=== PATIENT | female | born 1945 | race African-American/Black ===

== ENCOUNTER 2018-12-08 13:34 | Inpatient (IN) | payer MEDICARE, MEDICAID ==
[~2018-12-08] VITALS: Ht 167.6 cm; Wt 73.8 kg
[~2018-12-08 13:34] MED LIST: ASPI-231 PO; CLON0.2D3 TD; CLOP75TA28 PO; GLY5T PO; Gabapentin PO; HYD25T PO; ISOS60TA PO; LABE100T4 PO; LEVE500T22 PO; LOSA-49 PO; LUBI24CA6 PO; MIN25T PO; NIFE60TA53 PO; SIMV-8 PO
[2018-12-08 15:52] LABS: Basophils # (auto) 0 uL; Eosinophils # (auto) 0.2 uL
[2018-12-08 15:54] LABS: Basophils % (auto) 0.4 % (0.0-2.0); Eosinophils % (auto) 1.5 % (0.0-7.0); Hematocrit 35.4 % (36.0-46.0); Hemoglobin 11.5 g/dL (12.2-16.2); Lymphocytes # (auto) 0.6 uL; Lymphocytes % (auto) 5.3 % (10.0-50.0); Mean Corpuscular Hemoglobin 33.1 pg (28.0-32.0); Mean Corpuscular Hgb Conc. 32.5 g/dL (32.0-36.0); Monocytes # (auto) 0.9 uL; Monocytes % (auto) 7.9 % (0.0-12.0); Neutrophils # (auto) 10.1 uL; Neutrophils % (auto) 84.9 % (37.0-80.0); Platelet Count (auto) 211 10^3/uL (140-450); Red Blood Cells 3.47 10^6/uL (4.0-5.20); Red Cell Distribution Width 14.6 % (11.8-14.3); White Blood Cell 11.9 10^3/uL (4.4-10.8)
[2018-12-08 16:03] LABS: INR 1.13 (0.9-1.15); Partial Thromboplastin Time 28.5 sec (23.78-33.04)
[2018-12-08 16:10] LABS: Alanine Aminotransferase 16 U/L (13-56); Albumin 3.2 g/dL (3.4-5.0); Anion Gap 14 (5-15); Aspartate Aminotransferase 25 U/L (15-37); BUN/Creatinine Ratio 6.6; Blood Urea Nitrogen 49 mg/dL (7-18); Calcium 9.4 mg/dL (8.5-10.1); Carbon Dioxide 28 mmol/L (21-32); Chloride 97 mmol/L (98-107); GFR African American 7 mL/min; GFR Non-African American 6 mL/min; Glucose 69 mg/dL (74-106); Potassium 3.8 mmol/L (3.5-5.1); Sodium 139 mmol/L (136-145)
[2018-12-08 16:17] LABS: Alkaline Phosphatase 106 U/L (45-117); Bilirubin, Total 0.3 mg/dL (0.2-1.0); Total Protein 8.4 g/dL (6.4-8.2)
[2018-12-08 16:34] LABS: Urine Bacteria MOD /hpf (None Seen); Urine Blood Negative /uL (Negative); Urine Specific Gravity 1.011 (1.001-1.035); Urine WBC 5 /hpf (0 - 5)
[2018-12-08] MEDS ORDERED: DEXTROSE (50%) 50ML SYRG IV ONE (17:15)
--- NOTE | 2018-12-08 17:59 | NUR ---
Midline Placement: Patient educated on need for midline placement. All risks and benefits explained and all questions and concerns addresses prior to procedure. 18g/10cm midline inserted via RIGHT BASILIC vein using Ultrasound. Sterile technique utilized. Blood return obtained from SINGLE lumen and flushed easily with NS using proper technique. Midline secured with saline lock; biodisc and occlusive dressing applied. Primary RN notified. Midline lot # [id number].
[2018-12-08] MEDS ORDERED: HYDROcodone-ACET 5/325MG TAB PO PRN (20:00)
[2018-12-08] MEDS ORDERED: cloNIDine 0.2 mg/24hr 7DAY PATCH TD SCH (20:00)
[2018-12-08] MEDS ORDERED: MORPHINE SULF INJ 2 MG/ML SYRINGE 1ML IV PRN ×2 (20:00)
[2018-12-08] MEDS ORDERED: ONDANSETRON HCL 4 MG/2 ML VIAL IV PRN (20:00)
[2018-12-08] MEDS ORDERED: ACETAMINOPHEN 500 MG TAB PO PRN (20:00)
[2018-12-08] MEDS ORDERED: NITROGLYCERIN 0.4 MG SL TAB SL PRN (20:00)
[2018-12-08] MEDS ORDERED: DEXTROSE (50%) 50ML SYRG IV PRN (20:00)
[2018-12-08] MEDS ORDERED: cefTRIAXone 1GM/50ML D5W 50 ML IV ONE ×2 (20:20→21:00)
[2018-12-08] MEDS ORDERED: InsuLIN REG 1unit/0.01ml Soln (100units/ml) SC SCH (22:00)
[2018-12-08] MEDS ORDERED: PATIENTS OWN MEDICATION (Simvastatin 20 MG) PO SCH (22:00)
[2018-12-08] MEDS ORDERED: ACCU-CHEK COMFORT CURVE STRIP VI SCH (22:00)
[2018-12-08] MEDS ORDERED: GABAPENTIN 200 MG PO SCH (22:00)
--- NOTE | 2018-12-08 22:10 | NUR ---
Telemetry admit from [facility] admitted to Telemetry unit. Patient oriented to [facility] LUNA OCA, primary RN, unit, room, bed, and unit policies regarding patient care and visiting hours. Patient now on continuous telemetry monitoring, tele box #23 and telemetry reading on arrival to unit is sinus rhythm 72. Patient weighed by bedscale. Note: Upon first assessment, patient AOX0, patient not answering questions nor following commands. Pt does follow with eyes when you walk across the room. Will check blood sugar.
[2018-12-08 22:25] VITALS: BP 113/68
--- NOTE | 2018-12-08 22:25 | NUR ---
Blood sugar Low at 16 and recheck was 23, Dextrose given, see eMAR. Patient is now talking and AOx2. Patient is now following commands. Will page hospitalist once blood sugar recheck is done again. Addendum: 12/09/18 at 0154 by [facility] LUNA OCA, RN 0: Blood sugar recheck was 144.
--- NOTE | 2018-12-08 22:45 | NUR ---
Hospitalist paged Regarding Low blood sugar, awaiting call back. Continue care.
--- NOTE | 2018-12-08 22:55 | NUR ---
Hospitalist returned call Dr. Asif returned call, updated on patient status and reason for call, new orders received and read back for verification. Continue care.
--- NOTE | 2018-12-09 | NUR ---
Stool sample sent.
[2018-12-09] MEDS: hydrALAZINE HCL 25 MG TAB PO SCH ×3 (00:06→22:00)
[2018-12-09] MEDS: LEVETIRACETAM 500 MG TAB PO SCH ×3 (00:06→22:05)
[2018-12-09] MEDS: DEXTROSE 10% 1,000 ML IV SCH ×2 (00:07→20:00)
--- NOTE | 2018-12-09 00:13 | NUR ---
Blood sugar was 68, gave patient orange juice and francie crackers, continue care.
[2018-12-09] MEDS: ACCU-CHEK COMFORT CURVE STRIP VI SCH ×7 (00:25→23:39)
--- NOTE | 2018-12-09 02:05 | NUR ---
MRSA screen sent
--- NOTE | 2018-12-09 03:53 | NUR ---
Blood sugar 130, continue care.
[2018-12-09 04:31] VITALS: BP 121/58
[2018-12-09 05:47] LABS: Basophils # (auto) 0 uL; Basophils % (auto) 0.4 % (0.0-2.0); Eosinophils # (auto) 0.2 uL; Eosinophils % (auto) 3.2 % (0.0-7.0); Hematocrit 34.5 % (36.0-46.0); Hemoglobin 11.5 g/dL (12.2-16.2); Lymphocytes # (auto) 0.8 uL; Lymphocytes % (auto) 14.3 % (10.0-50.0); Mean Corpuscular Hemoglobin 33.6 pg (28.0-32.0); Mean Corpuscular Hgb Conc. 33.3 g/dL (32.0-36.0); Mean Corpuscular Volume 100.9 fL (80.0-100.0); Monocytes # (auto) 0.8 uL; Monocytes % (auto) 14.4 % (0.0-12.0); Neutrophils # (auto) 3.6 uL; Neutrophils % (auto) 67.7 % (37.0-80.0); Platelet Count (auto) 195 10^3/uL (140-450); Red Blood Cells 3.42 10^6/uL (4.0-5.20); Red Cell Distribution Width 14.9 % (11.8-14.3); White Blood Cell 5.4 10^3/uL (4.4-10.8)
[2018-12-09 06:08] LABS: Potassium 3.7 mmol/L (3.5-5.1)
[2018-12-09 06:17] LABS: BUN/Creatinine Ratio 7.7; Calcium 9.5 mg/dL (8.5-10.1)
--- NOTE | 2018-12-09 07:00 | NUR ---
Stool sample sent to lab 2nd stool sample sent to lab with copy of cdiff paper.
--- NOTE | 2018-12-09 07:54 | NUR ---
RECEIVED REPORT AND ASSUME CARE OF PT. PT RESTING IN BED. NO S/S ACUTE DISTRESS NOTED. BED AT LOWEST POSITION. CALL LIGHT AND BELONGINGS WITHIN REACH. WILL CONT TO MONITOR
[2018-12-09 09:54] VITALS: BP 125/57
[2018-12-09] MEDS: DOCUSATE SOD 100 MG CAP PO SCH (10:00)
[2018-12-09] MEDS: GABAPENTIN 100 MG CAP PO SCH ×2 (10:21→22:05)
[2018-12-09] MEDS: CLOPIDOGREL BISULFATE 75 MG TAB PO SCH (10:21)
[2018-12-09] MEDS: ASPirin-EC 81 mg tab PO SCH (10:21)
[2018-12-09 13:00] VITALS: BP 130/52
--- NOTE | 2018-12-09 16:16 | NUR ---
PT DECLINED P.T. TODAY BECAUSE OF DIARRHEA.
[2018-12-09 17:30] VITALS: BP 125/69
--- NOTE | 2018-12-09 19:12 | NUR ---
PT RESTING IN BED. NO S/S ACUTE DISTRESS NOTED. ENDORSED CARE TO NIGHT NURSE.
--- NOTE | 2018-12-09 19:20 | NUR ---
Opening Shift Note Assumed care of patient, awake and alert x2. No S/S of distress/SOB or pain. Instructed on POC and to call for assist PRN. Bed in lowest locked position, call light within reach, side rails up x2, fall precautions in place. Will continue to monitor for changes Q1hr and PRN.
--- NOTE | 2018-12-09 20:30 | NUR ---
Stool sample 3rd cdiff sample sent to lab with copy of cdiff paper. Continue care.
[2018-12-09] MEDS ORDERED: cefTRIAXone 1GM/50ML D5W 50 ML IV SCH (22:00)
[2018-12-09] MEDS ORDERED: PRAVASTATIN SODIUM 20 MG TAB PO SCH (22:00)
[2018-12-09 22:08] VITALS: BP 100/54
[2018-12-10] MEDS: ACCU-CHEK COMFORT CURVE STRIP VI SCH ×4 (03:46→16:35)
[2018-12-10 05:38] VITALS: BP 119/58
[2018-12-10 05:46] LABS: Hematocrit 34.2 % (36.0-46.0); Hemoglobin 11.2 g/dL (12.2-16.2); Red Blood Cells 3.37 10^6/uL (4.0-5.20); White Blood Cell 4.7 10^3/uL (4.4-10.8)
[2018-12-10 05:49] LABS: Mean Corpuscular Hemoglobin 33.1 pg (28.0-32.0); Mean Corpuscular Hgb Conc. 32.7 g/dL (32.0-36.0); Mean Corpuscular Volume 101.3 fL (80.0-100.0); Platelet Count (auto) 190 10^3/uL (140-450)
[2018-12-10 05:52] LABS: Band Neutrophils % (manual) 0; Basophils % (manual) 0 (0.0-2.0); Blast Cells 0; Metamyelocytes % 0; Myelocytes % 0; Promyelocytes % 0; Reactive Lymphocytes 0
[2018-12-10 06:13] LABS: Calcium 9.7 mg/dL (8.5-10.1); Potassium 3.6 mmol/L (3.5-5.1)
[2018-12-10 06:15] LABS: BUN/Creatinine Ratio 8.4
--- NOTE | 2018-12-10 07:50 | NUR ---
Opening Shift Note Assumed care of patient, awake. No S/S of distress/SOB or pain. Instructed on POC and to call for assist PRN, will continue to monitor for changes Q1hr and PRN.
[2018-12-10 08:00] VITALS: BP 101/39
[2018-12-10 08:03] LABS: Eosinophils % (manual) 2 (0-7); Lymphocytes % (manual) 12 (10.0-50.0); Monocytes % (manual) 21 (0-12)
[2018-12-10 09:40] VITALS: BP 101/39
[2018-12-10] MEDS ORDERED: GABAPENTIN 100 MG CAP PO SCH (10:00)
[2018-12-10] MEDS: hydrALAZINE HCL 25 MG TAB PO SCH (10:00)
[2018-12-10] MEDS: DOCUSATE SOD 100 MG CAP PO SCH (10:24)
[2018-12-10] MEDS: CLOPIDOGREL BISULFATE 75 MG TAB PO SCH (10:25)
[2018-12-10] MEDS: ASPirin-EC 81 mg tab PO SCH (10:25)
[2018-12-10] MEDS: LEVETIRACETAM 500 MG TAB PO SCH (10:25)
[2018-12-10] MEDS: GABAPENTIN 100 MG CAP PO SCH (10:27)
[2018-12-10 13:00] VITALS: BP 106/76
[2018-12-10] MEDS: DEXTROSE 10% 1,000 ML IV SCH (16:35)
--- NOTE | 2018-12-10 17:00 | NUR ---
Contacted Mikael Stacy, patients daughter to inform her that she has been discharged. She stated that she can pick her up at 18:20.
[2018-12-10 17:21] VITALS: BP 123/55
--- NOTE | 2018-12-10 19:01 | NUR ---
Discharge instructions given as ordered. Encourage to follow up with PMD as instructed. All questions and concerns addressed. Patient verbalized understanding. IV removed with catheter intact, pressure dressing applied. Telemetry unit returned to ICU. Patient taken to vehicle via wheelchair with all personal belongings, accompanied by staff and daughter Mikael. No distress noted at time of departure.
[2018-12-11] MEDS ORDERED: SODIUM CHL 0.9% 1000 ML BAG XX ONE (13:00)
== END 2018-12-10 19:00 | disposition home or self-care (01) | DRG 871 ==
LOC: EDBD 13:34 → ER 13:40 → TELE 19:48 → TELE-WESTW 22:00
PROVIDERS: ADMIT Nurse Practitioner Acute Care; ATTEND Internal Medicine
PROC: 5A1D70Z Performance of Urinary Filtration, Intermittent, Less than 6 Hours Per Day (ICD-10-PCS; principal; 2018-12-10)
DX: A41.9 Sepsis, unspecified organism (principal); G92 Toxic encephalopathy; N18.6 End stage renal disease; N39.0 Urinary tract infection, site not specified; E44.1 Mild protein-calorie malnutrition; I13.2 Hypertensive heart and chronic kidney disease with heart failure and with stage 5 chronic kidney disease, or end stage renal disease; E87.1 Hypo-osmolality and hyponatremia; D63.8 Anemia in other chronic diseases classified elsewhere; E11.22 Type 2 diabetes mellitus with diabetic chronic kidney disease; E11.649 Type 2 diabetes mellitus with hypoglycemia without coma; I25.10 Atherosclerotic heart disease of native coronary artery without angina pectoris; G40.909 Epilepsy, unspecified, not intractable, without status epilepticus; F03.90 Unspecified dementia, unspecified severity, without behavioral disturbance, psychotic disturbance, mood disturbance, and anxiety; E11.21 Type 2 diabetes mellitus with diabetic nephropathy; E11.42 Type 2 diabetes mellitus with diabetic polyneuropathy; E11.65 Type 2 diabetes mellitus with hyperglycemia; E78.5 Hyperlipidemia, unspecified; I50.9 Heart failure, unspecified; I70.0 Atherosclerosis of aorta; Z95.5 Presence of coronary angioplasty implant and graft; Z99.2 Dependence on renal dialysis; I25.2 Old myocardial infarction; Z79.02 Long term (current) use of antithrombotics/antiplatelets; Z79.82 Long term (current) use of aspirin; Z79.84 Long term (current) use of oral hypoglycemic drugs; Z79.899 Other long term (current) drug therapy; Z87.11 Personal history of peptic ulcer disease; Z87.891 Personal history of nicotine dependence; Z81.8 Family history of other mental and behavioral disorders; Z82.0 Family history of epilepsy and other diseases of the nervous system; Z82.3 Family history of stroke; Z82.49 Family history of ischemic heart disease and other diseases of the circulatory system; Z83.3 Family history of diabetes mellitus; Z83.511 Family history of glaucoma
CPT/HCPCS: 36415; 71045; 80048; 80053; 81001; 82962; 83036; 83735; 84484; 85007; 85025; 85027; 85610; 85730; 87081; 87086; 87493; 90935; 93005; 94761; 96374; 96375; 96376; G0378; J0696